=== PATIENT | female | born 2000 | race African-American/Black ===

== ENCOUNTER 2021-03-31 01:36 | Emergency (ER) | payer OTHER, SELFPAY ==
[2021-03-31] MEDS ORDERED: Ketorolac Tromethamine 30 MG/ML VIAL ONE (03:26)
== END 2021-03-31 03:47 | disposition home or self-care (01) ==
LOC: ERS 01:36
DX: M25.552 Pain in left hip (principal); V89.2XXA Person injured in unspecified motor-vehicle accident, traffic, initial encounter
CPT/HCPCS: 71045; 72170; 96372; J1885